=== PATIENT | female | born 1960 | race African-American/Black ===

== ENCOUNTER 2021-11-23 13:19 | Emergency (ER) | payer OTHER ==
[~2021-11-23] VITALS: Ht 167.6 cm; Wt 54.4 kg
[2021-11-23] MEDS ORDERED: SODIUM CHLORIDE 0.9% 1,000 ML IV ONE (18:45)
[2021-11-23] MEDS ORDERED: LORazepam 2MG/ML-1ML VIAL IV ONE (18:45)
[2021-11-23] MEDS ORDERED: OLANZapine 5 MG TAB PO ONE (19:00)
[2021-11-23 20:13] LABS: Basophils # (auto) 0.1 10 ^3/uL (0-0.2); Basophils % (auto) 1.1 % (0.0-2.0); Eosinophils # (auto) 0.3 10 ^3/uL (0-0.8); Eosinophils % (auto) 4.1 % (0.0-7.0); Hematocrit 40.3 % (36.0-46.0); Hemoglobin 13.6 g/dL (12.2-16.2); Lymphocytes # (auto) 3.9 10 ^3/uL (0.4-5.4); Mean Corpuscular Hemoglobin 32.2 pg (28.0-32.0); Mean Corpuscular Hgb Conc. 33.7 g/dL (32.0-36.0); Mean Corpuscular Volume 95.3 fL (80.0-100.0); Monocytes # (auto) 0.7 10 ^3/uL (0-1.3); Monocytes % (auto) 8.6 % (0.0-12.0); Neutrophils # (auto) 2.7 10 ^3/uL (1.6-8.6); Neutrophils % (auto) 35.2 % (37.0-80.0); Nucleated Red Blood Cells % 0.1 %; Red Blood Cells 4.22 10^6/uL (4.0-5.20); Red Cell Distribution Width 14.5 % (11.8-14.3); White Blood Cell 7.7 10^3/uL (4.4-10.8)
[2021-11-23 20:38] LABS: Albumin 3.8 g/dL (3.4-5.0); BUN/Creatinine Ratio 9.2; Calcium 8.8 mg/dL (8.5-10.1); Magnesium 2.7 mg/dL (1.6-2.6); Potassium 3.7 mmol/L (3.5-5.1)
[2021-11-23 20:40] LABS: Bilirubin, Total 0.3 mg/dL (0.2-1.0); Total Protein 7.4 g/dL (6.4-8.2)
[2021-11-23 20:51] LABS: Urine Bacteria NONE SEEN /hpf (None Seen); Urine Blood Negative /uL (Negative); Urine Hyaline Cast FEW /lpf (0 - 2); Urine Mucus FEW (None Seen); Urine Specific Gravity 1.018 (1.001-1.035); Urine WBC 2 /hpf (0 - 5)
[2021-11-23 21:42] LABS: Alcohol, Urine < 3.0 mg/dL (0-10); Amphetamine Screen, Urine NEGATIVE (NEGATIVE); Barbiturate Scree,Urine NEGATIVE (NEGATIVE); Benzodiazephine Screen, Urine NEGATIVE (NEGATIVE); Cannabinoid Screen, Urine POSITIVE (NEGATIVE); Cocaine Screen, Urine NEGATIVE (NEGATIVE); Opiate Scree,Urine NEGATIVE (NEGATIVE); Phencyclidine Screen, Urine NEGATIVE (NEGATIVE)
[2021-11-23] MEDS ORDERED: CIPROFLOXACIN HCL 500 MG TAB PO ONE (22:00)
[2021-11-25] MEDS ORDERED: VALPROIC ACID 250 MG/5 ML ORAL SOLN PO ONE (08:00)
[2021-11-25 08:41] VITALS: BP 160/109
== END 2021-11-25 09:22 | disposition short-term general hospital (02) ==
LOC: EDBD 13:19 → ER 13:19
DX: F20.9 Schizophrenia, unspecified (principal); F29 Unspecified psychosis not due to a substance or known physiological condition; N39.0 Urinary tract infection, site not specified; G40.909 Epilepsy, unspecified, not intractable, without status epilepticus; R07.89 Other chest pain
CPT/HCPCS: 36415; 70450; 71045; 80053; 80307; 81001; 83735; 84443; 85025; 93005; 96361; 96374; 99285; J2060

== ENCOUNTER 2022-01-19 13:43 | Emergency (ER) | payer OTHER ==
[2022-01-19] MEDS ORDERED: MORPHINE SULFATE INJ 2 MG/ml SYRG IV ONE (14:15)
[2022-01-19] MEDS ORDERED: ONDANSETRON HCL 4 MG/2 ML VIAL IV ONE (14:15)
[2022-01-19 14:38] LABS: Basophils # (auto) 0.1 10 ^3/uL (0-0.2); Basophils % (auto) 0.5 % (0.0-2.0); Eosinophils # (auto) 0 10 ^3/uL (0-0.8); Eosinophils % (auto) 0.3 % (0.0-7.0); Hematocrit 38.4 % (36.0-46.0); Hemoglobin 12.5 g/dL (12.2-16.2); Lymphocytes # (auto) 0.5 10 ^3/uL (0.4-5.4); Lymphocytes % (auto) 4.9 % (10.0-50.0); Mean Corpuscular Hemoglobin 30.2 pg (28.0-32.0); Mean Corpuscular Hgb Conc. 32.5 g/dL (32.0-36.0); Mean Corpuscular Volume 92.9 fL (80.0-100.0); Monocytes # (auto) 0.6 10 ^3/uL (0-1.3); Monocytes % (auto) 5.7 % (0.0-12.0); Neutrophils # (auto) 9.5 10 ^3/uL (1.6-8.6); Neutrophils % (auto) 88.6 % (37.0-80.0); Red Blood Cells 4.13 10^6/uL (4.0-5.20); Red Cell Distribution Width 14.2 % (11.8-14.3); White Blood Cell 10.8 10^3/uL (4.4-10.8)
[2022-01-19 14:57] LABS: Albumin 3.8 g/dL (3.4-5.0); BUN/Creatinine Ratio 11.7; Calcium 8.7 mg/dL (8.5-10.1); Potassium 3.7 mmol/L (3.5-5.1)
[2022-01-19] MEDS ORDERED: LORazepam 2MG/ML-1ML VIAL IV ONE (15:00)
[2022-01-19 15:01] LABS: Bilirubin, Total 0.4 mg/dL (0.2-1.0); Total Protein 7.4 g/dL (6.4-8.2)
[2022-01-19] MEDS ORDERED: PHENYTOIN IV DILANTIN 500 MG in SODIUM CHL 0.9% 100 ML IV ONE (17:30)
[2022-01-19 20:36] VITALS: BP 121/72
== END 2022-01-19 20:51 | disposition short-term general hospital (02) ==
LOC: EDUNIT# 13:43 → EDBD 13:43 → ER 13:43
DX: G40.909 Epilepsy, unspecified, not intractable, without status epilepticus (principal); F29 Unspecified psychosis not due to a substance or known physiological condition; R41.82 Altered mental status, unspecified; F12.10 Cannabis abuse, uncomplicated; Z20.822 Contact with and (suspected) exposure to COVID-19
CPT/HCPCS: 36415; 70450; 80053; 80185; 80320; 85025; 87426; 93005; 96365; 96367; 96375; 99285; J1165; J1953; J2060; J2270; J2405; J7060

== ENCOUNTER → 2023-08-27 | Outpatient (CLI) | payer MEDICAID ==
[2023-08-27 13:04] LABS: Triglycerides 49 mg/dL (< 150)
[2023-08-27 13:05] LABS: LDL Cholesterol 109 mg/dL (< 100)
[2023-08-27 13:06] LABS: Cholesterol 210 mg/dL (< 200); HDL Cholesterol 84 mg/dL (40-59)
== END | disposition home or self-care (01) ==
LOC: LAB 12:11
PROVIDERS: ATTEND Student in an Organized Health Care Education/Training Program
DX: Z12.11 Encounter for screening for malignant neoplasm of colon (principal); R73.03 Prediabetes; E78.5 Hyperlipidemia, unspecified
CPT/HCPCS: 36415; 80061

== ENCOUNTER 2023-10-08 11:48 | Inpatient (IN) | payer MEDICAID ==
[~2023-10-08] VITALS: Ht 167.6 cm; Wt 91.1 kg
[2023-10-08 13:04] LABS: Basophils # (auto) 0.1 10 ^3/uL (0-0.2); Basophils % (auto) 0.9 % (0.0-2.0); Eosinophils # (auto) 0 10 ^3/uL (0-0.8); Eosinophils % (auto) 0.6 % (0.0-7.0); Hematocrit 42.9 % (36.0-46.0); Lymphocytes # (auto) 2.5 10 ^3/uL (0.4-5.4); Lymphocytes % (auto) 29.4 % (10.0-50.0); Mean Corpuscular Hemoglobin 30.1 pg (28.0-32.0); Mean Corpuscular Hgb Conc. 32.8 g/dL (32.0-36.0); Mean Corpuscular Volume 91.9 fL (80.0-100.0); Monocytes # (auto) 0.8 10 ^3/uL (0-1.3); Monocytes % (auto) 9.3 % (0.0-12.0); Neutrophils # (auto) 5.1 10 ^3/uL (1.6-8.6); Neutrophils % (auto) 59.8 % (37.0-80.0); Red Blood Cells 4.67 10^6/uL (4.0-5.20); Red Cell Distribution Width 16.8 % (11.8-14.3); White Blood Cell 8.5 10^3/uL (4.4-10.8)
[2023-10-08 13:11] LABS: Alanine Aminotransferase 17 U/L (7-40); Alkaline Phosphatase 174 U/L (46-116); Anion Gap 9 (5-15); Aspartate Aminotransferase 21 U/L (13-40); BUN/Creatinine Ratio 11.5 (10.0-20.0); Blood Urea Nitrogen 12 mg/dL (9-23); Calcium 9.7 mg/dL (8.5-10.1); Carbon Dioxide 26 mmol/L (20-30); Chloride 106 mmol/L (98-107); Glucose 173 mg/dL (74-106); Potassium 3.8 mmol/L (3.5-5.1); Sodium 141 mmol/L (136-145)
[2023-10-08 13:12] LABS: Albumin 4.8 g/dL (3.2-4.8); Bilirubin, Total 0.4 mg/dL (0.2-1.0); Total Protein 7.3 g/dL (5.7-8.2)
[2023-10-08 13:24] LABS: Lactic Acid w/Reflex 2.5 mmol/L (0.4-2.0)
[2023-10-08] MEDS ORDERED: NITROGLYCERIN 0.4 MG SL TAB SL PRN (14:45)
[2023-10-08] MEDS ORDERED: DOCUSATE SOD 100 MG CAP PO PRN (14:45)
[2023-10-08] MEDS ORDERED: ONDANSETRON HCL 4 MG/2 ML VIAL IV PRN (14:45)
[2023-10-08] MEDS ORDERED: MORPHINE SULFATE INJ 2 MG/ml SYRG IV PRN (14:45)
[2023-10-08] MEDS ORDERED: HYDROcodone-ACET 5/325MG TAB PO PRN (14:45)
[2023-10-08] MEDS ORDERED: DONE1TAB88 PO (15:25)
[2023-10-08] MEDS ORDERED: SERT-160 PO (15:25)
[2023-10-08] MEDS ORDERED: VALP250C3 PO (15:25)
[2023-10-08] MEDS ORDERED: IPRATROPIUM BROM 0.5 MG/2.5ML INH SOL NEB SCH (18:00)
[2023-10-08] MEDS ORDERED: ALBUTEROL SULF 2.5 MG/0.5ML(0.5%) NEB SOLN NEB SCH (18:00)
[2023-10-08] MEDS: IOHEXOL 350 MG/ML 100ML IJ ONE ×3 (18:34→23:19)
[2023-10-08] MEDS: ENOXAPARIN SOD 40 MG/0.4 ML SYRINGE SC ONE (22:09)
[2023-10-08] MEDS: MORPHINE SULFATE INJ 2 MG/ml SYRG IV PRN (22:10)
[2023-10-08] MEDS: SODIUM CHLORIDE 0.9% 1,000 ML IV ONE (22:10)
[2023-10-08 23:50] VITALS: BP 130/82; PULSE 61; RESP 18; RESP 20; TEMP 97.6; O2SAT 95
[2023-10-09] MEDS: DONEPEZIL HYDROCHLORIDE 5 MG TAB PO SCH (00:38)
[2023-10-09] MEDS: SODIUM CHLORIDE 0.9% 1,000 ML IV ONE (00:38)
[2023-10-09] MEDS: ACETAMINOPHEN 325 MG TAB PO PRN (01:38)
[2023-10-09 05:00] VITALS: BP 124/73; PULSE 61; RESP 20; TEMP 98.3; O2SAT 98
[2023-10-09 05:55] LABS: Basophils # (auto) 0.1 10 ^3/uL (0-0.2); Basophils % (auto) 1.4 % (0.0-2.0); Eosinophils # (auto) 0.4 10 ^3/uL (0-0.8); Eosinophils % (auto) 3.9 % (0.0-7.0); Hematocrit 40.1 % (36.0-46.0); Lymphocytes # (auto) 3.5 10 ^3/uL (0.4-5.4); Lymphocytes % (auto) 36.2 % (10.0-50.0); Mean Corpuscular Hgb Conc. 32.4 g/dL (32.0-36.0); Mean Corpuscular Volume 92.4 fL (80.0-100.0); Monocytes # (auto) 1.6 10 ^3/uL (0-1.3); Monocytes % (auto) 16.8 % (0.0-12.0); Neutrophils % (auto) 41.7 % (37.0-80.0); Nucleated Red Blood Cells % 0.3 %; Red Blood Cells 4.34 10^6/uL (4.0-5.20); Red Cell Distribution Width 16.6 % (11.8-14.3); White Blood Cell 9.6 10^3/uL (4.4-10.8)
[2023-10-09 06:16] LABS: Alanine Aminotransferase 11 U/L (7-40); Albumin 3.9 g/dL (3.2-4.8); Alkaline Phosphatase 133 U/L (46-116); Anion Gap 9 (5-15); Aspartate Aminotransferase 12 U/L (13-40); BUN/Creatinine Ratio 11.1 (10.0-20.0); Bilirubin, Total 0.4 mg/dL (0.2-1.0); Blood Urea Nitrogen 7 mg/dL (9-23); Calcium 8.9 mg/dL (8.7-10.4); Carbon Dioxide 21 mmol/L (20-30); Chloride 109 mmol/L (98-107); Glucose 93 mg/dL (74-106); Potassium 3.4 mmol/L (3.5-5.1); Sodium 139 mmol/L (136-145); Total Protein 6.5 g/dL (5.7-8.2)
[2023-10-09 07:21] LABS: Urine Bacteria NONE SEEN /hpf (None Seen); Urine Blood Negative /uL (Negative); Urine Clarity Clear (Clear); Urine Color Colorless (Yellow); Urine Protein, UAD Negative (Negative); Urine Specific Gravity 1.038 (1.001-1.035); Urine Urobilinogen Normal (Negative); Urine WBC 1 /hpf (0 - 5); Urine pH 5.5 (5.0-8.0)
[2023-10-09 07:27] LABS: Amphetamine Screen, Urine Neg (NEGATIVE); Barbiturate Scree,Urine Neg (NEGATIVE); Benzodiazephine Screen, Urine Neg (NEGATIVE); Cocaine Screen, Urine Neg (NEGATIVE); Opiate Scree,Urine Neg (NEGATIVE)
[2023-10-09 07:28] LABS: Cannabinoid Screen, Urine Pos (NEGATIVE); Phencyclidine Screen, Urine Neg (NEGATIVE)
[2023-10-09 08:00] VITALS: PULSE 60; PULSE 85; RESP 18; TEMP 36.8; O2SAT 94
[2023-10-09 09:00] VITALS: BP 111/65; PULSE 58; RESP 16; TEMP 98.3; O2SAT 94
[2023-10-09] MEDS: ENOXAPARIN SOD 40 MG/0.4 ML SYRINGE SC SCH (10:00)
[2023-10-09] MEDS: POTASSIUM CHL 20 Meq TABLET PO ONE (11:00)
[2023-10-09] MEDS: SERTRALINE HCL 50 MG TAB PO SCH (11:00)
[2023-10-09 13:00] VITALS: BP 133/83; PULSE 60; RESP 17; TEMP 97.8; O2SAT 95
[2023-10-09] MEDS ORDERED: LEVE100012 PO (13:39)
[2023-10-09] MEDS ORDERED: OLAN1TAB19 PO (13:41)
[2023-10-09] MEDS ORDERED: ASPI-717 PO (13:44)
[2023-10-09] MEDS ORDERED: PHEN1CAP60 PO (13:45)
[2023-10-09 17:00] VITALS: BP 137/78; PULSE 61; RESP 17; TEMP 97.8; O2SAT 96
[2023-10-09] MEDS: POTASSIUM CHLORIDE 20 MEQ, LIDOCAINE 1% (LOCAL ANESTH.) 2 ML in SODIUM CHL 0.9% 100 ML IV ONE (18:51)
[2023-10-09] MEDS: KETOROLAC TROMETH 30 MG/ML 1ML VIAL IV PRN (18:52)
[2023-10-09 20:00] VITALS: PULSE 61; PULSE 67; RESP 18; O2SAT 94
[2023-10-09] MEDS: levETIRAcetam 500 MG TAB PO SCH (21:14)
[2023-10-10] VITALS (7 sets, daily range): BP systolic 117–137; BP diastolic 73–95; PULSE 60–68; RESP 16–18; TEMP 36.8; O2SAT 94–99
[2023-10-10 06:31] LABS: Chloride 110 mmol/L (98-107); Sodium 141 mmol/L (136-145)
[2023-10-10 06:32] LABS: Anion Gap 8 (5-15); Carbon Dioxide 23 mmol/L (20-30)
[2023-10-10 06:33] LABS: Calcium 8.9 mg/dL (8.7-10.4)
[2023-10-10 06:37] LABS: BUN/Creatinine Ratio 13.1 (10.0-20.0); Blood Urea Nitrogen 8 mg/dL (9-23); Glucose 104 mg/dL (74-106)
[2023-10-10] MEDS: PHENYTOIN SODIUM 100 MG CAP PO SCH (10:37)
[2023-10-10] MEDS: OLANZapine 5 MG TAB PO SCH (10:39)
== END 2023-10-10 20:03 | disposition home or self-care (01) | DRG 203 ==
LOC: ER 11:48 → EDBD 11:48 → TELE 14:56 → TELE-CENTR 22:59
PROVIDERS: ADMIT Nurse Practitioner Family; ATTEND Internal Medicine
DX: M94.0 Chondrocostal junction syndrome [Tietze] (principal); F03.90 Unspecified dementia, unspecified severity, without behavioral disturbance, psychotic disturbance, mood disturbance, and anxiety; E11.9 Type 2 diabetes mellitus without complications; Z68.32 Body mass index [BMI] 32.0-32.9, adult; F20.9 Schizophrenia, unspecified; G40.909 Epilepsy, unspecified, not intractable, without status epilepticus; E66.9 Obesity, unspecified; Z83.3 Family history of diabetes mellitus; Z95.0 Presence of cardiac pacemaker; Z87.891 Personal history of nicotine dependence
CPT/HCPCS: 36415; 71045; 71275; 80048; 80053; 80164; 80307; 81001; 82607; 83036; 83605; 84443; 84484; 85025; 85379; 87070; 87205; 93005; 93306; G0378; J1885; J2001

== ENCOUNTER 2024-01-04 12:39 | Inpatient (IN) | payer MEDICAID ==
[~2024-01-04] VITALS: Ht 166.4 cm; Wt 73.7 kg
[~2024-01-04 12:39] MED LIST: ASPI-717 PO; DONE1TAB88 PO; LEVE100012 PO; OLAN1TAB19 PO; PHEN1CAP60 PO; SERT-160 PO; VALP250C3 PO
[2024-01-04] MEDS ORDERED: DEXTROSE 10% 250 ML IV ONE (14:30)
[2024-01-04 15:00] VITALS: PULSE 62; RESP 16; O2SAT 95
[2024-01-04] MEDS: DEXTROSE (50%) 50ML SYRG IV ONE (15:30)
[2024-01-04 15:40] LABS: Basophils # (auto) 0.1 10 ^3/uL (0-0.2); Basophils % (auto) 0.7 % (0.0-2.0); Eosinophils # (auto) 0.2 10 ^3/uL (0-0.8); Eosinophils % (auto) 2.2 % (0.0-7.0); Hematocrit 41.2 % (36.0-46.0); Hemoglobin 13.6 g/dL (12.2-16.2); Lymphocytes % (auto) 42.9 % (10.0-50.0); Mean Corpuscular Hemoglobin 32.1 pg (28.0-32.0); Mean Corpuscular Volume 97.4 fL (80.0-100.0); Monocytes # (auto) 1.1 10 ^3/uL (0-1.3); Monocytes % (auto) 11.9 % (0.0-12.0); Neutrophils % (auto) 42.3 % (37.0-80.0); Nucleated Red Blood Cells % 0.1 %; Red Blood Cells 4.22 10^6/uL (4.0-5.20); Red Cell Distribution Width 14.5 % (11.8-14.3); White Blood Cell 9.4 10^3/uL (4.4-10.8)
[2024-01-04 15:55] LABS: Alanine Aminotransferase 36 U/L (7-40); Albumin 4.7 g/dL (3.2-4.8); Alkaline Phosphatase 135 U/L (46-116); Anion Gap 6 (5-15); Aspartate Aminotransferase 35 U/L (13-40); BUN/Creatinine Ratio 17.3 (10.0-20.0); Blood Urea Nitrogen 13 mg/dL (9-23); Calcium 9.7 mg/dL (8.5-10.1); Carbon Dioxide 28 mmol/L (20-30); Chloride 108 mmol/L (98-107); Glucose 104 mg/dL (74-106); Potassium 4.3 mmol/L (3.5-5.1); Sodium 142 mmol/L (136-145)
[2024-01-04 15:56] LABS: Bilirubin, Total 0.2 mg/dL (0.2-1.0); Total Protein 7.1 g/dL (5.7-8.2)
[2024-01-04 16:14] LABS: INR 1.04 (0.9-1.15); Partial Thromboplastin Time 25.5 SEC (24.5-34.5)
[2024-01-04] MEDS ORDERED: NITROGLYCERIN 0.4 MG SL TAB SL PRN (17:00)
[2024-01-04] MEDS ORDERED: ONDANSETRON HCL 4 MG/2 ML VIAL IV PRN (17:00)
[2024-01-04] MEDS ORDERED: MORPHINE SULFATE 4 MG/ML SYR/VIAL IV PRN (17:00)
[2024-01-04] MEDS ORDERED: ACETAMINOPHEN 325 MG TAB PO PRN (17:00)
[2024-01-04 18:05] LABS: INR 1.03 (0.9-1.15); Prothrombin Time 10.9 sec (9.3-11.8)
[2024-01-04] MEDS ORDERED: ATOR20TA50 PO (18:38)
[2024-01-04] MEDS ORDERED: CELE100C82 PO (18:38)
[2024-01-04 19:18] LABS: Valproic Acid (Depakene) 73.2 ug/mL (50-100)
[2024-01-04 19:26] LABS: Phenytoin (Dilantin) 35.7 ug/mL (10-20)
[2024-01-04 19:30] VITALS: PULSE 61; RESP 10; O2SAT 93
[2024-01-04] MEDS: DEXTROSE 50% SYRINGE 50 ML IV ONE (20:03)
[2024-01-04] MEDS: DEXTROSE 10% 1,000 ML IV ONE (20:17)
[2024-01-04] MEDS: VALPROIC ACID 250 MG/5 ML ORAL SOLN PO SCH (22:10)
[2024-01-04] MEDS: levETIRAcetam 500 MG TAB PO SCH (22:11)
[2024-01-04] MEDS: ATORVASTATIN 20 MG TAB PO SCH (22:11)
[2024-01-04] MEDS: PHENYTOIN SODIUM 100 MG CAP PO SCH (22:11)
[2024-01-04] MEDS: METOPROLOL TARTRATE 25 MG TAB PO SCH (22:12)
[2024-01-04] MEDS: OLANZapine 5 MG TAB PO SCH (22:12)
[2024-01-04 23:46] VITALS: BP 121/80; PULSE 62; RESP 15; TEMP 97.5; O2SAT 97
[2024-01-05] VITALS (7 sets, daily range): BP systolic 116–141; BP diastolic 71–89; PULSE 56–91; RESP 16–18; TEMP 97.6–98.4; O2SAT 92–96
[2024-01-05 07:28] LABS: Alanine Aminotransferase 31 U/L (7-40); Albumin 3.7 g/dL (3.2-4.8); Alkaline Phosphatase 105 U/L (46-116); Anion Gap 2 (5-15); Aspartate Aminotransferase 30 U/L (13-40); Bilirubin, Total 0.3 mg/dL (0.2-1.0); Blood Urea Nitrogen 6 mg/dL (9-23); Calcium 8.6 mg/dL (8.5-10.1); Carbon Dioxide 26 mmol/L (20-30); Chloride 112 mmol/L (98-107); Cholesterol 124 mg/dL (< 200); Glucose 76 mg/dL (74-106); HDL Cholesterol 66 mg/dL (40-59); LDL Cholesterol 39 mg/dL (< 100); Potassium 4.3 mmol/L (3.5-5.1); Sodium 140 mmol/L (136-145); Triglycerides 45 mg/dL (< 150)
[2024-01-05 08:26] LABS: Hematocrit 38.8 % (36.0-46.0); Hemoglobin 12.6 g/dL (12.2-16.2); Mean Corpuscular Hgb Conc. 32.6 g/dL (32.0-36.0); Mean Corpuscular Volume 101.1 fL (80.0-100.0); Red Blood Cells 3.83 10^6/uL (4.0-5.20); Red Cell Distribution Width 14.7 % (11.8-14.3); White Blood Cell 7.5 10^3/uL (4.4-10.8)
[2024-01-05 08:27] LABS: Band Neutrophils % (manual) 0; Basophils % (manual) 0 (0.0-2.0); Blast Cells 0; Metamyelocytes % 0; Monocytes % (manual) 0 (0-12); Myelocytes % 0; Promyelocytes % 0; Reactive Lymphocytes 0
[2024-01-05] MEDS: ASPirin 81 mg TAB PO SCH (09:56)
[2024-01-05] MEDS: DONEPEZIL HYDROCHLORIDE 5 MG TAB PO SCH (09:56)
[2024-01-05] MEDS: DOCUSATE SOD 100 MG CAP PO SCH (09:56)
[2024-01-05] MEDS: SERTRALINE HCL 50 MG TAB PO SCH (09:56)
[2024-01-05 12:26] LABS: Eosinophils % (manual) 4 (0-7); Lymphocytes % (manual) 47 (10.0-50.0)
[2024-01-05 12:27] LABS: Platelet Estimate Adequate
[2024-01-06] VITALS (7 sets, daily range): BP systolic 103–141; BP diastolic 68–90; PULSE 60–76; RESP 15–22; TEMP 97.8–98.5; O2SAT 90–97
[2024-01-06] MEDS ORDERED: DEXTROSE (50%) 50ML SYRG IV PRN (17:30)
[2024-01-06] MEDS: ACCU-CHEK COMFORT CURVE STRIP VI SCH (22:14)
[2024-01-06] MEDS: InsuLIN REG 1unit/0.01ml Soln (100units/ml) SC SCH (22:18)
[2024-01-07] VITALS (8 sets, daily range): BP systolic 103–130; BP diastolic 67–88; PULSE 60–68; RESP 15–22; TEMP 97.9–98.3; O2SAT 95–100
[2024-01-08] VITALS (7 sets, daily range): BP systolic 101–126; BP diastolic 63–85; PULSE 60–65; RESP 16–22; TEMP 97.6–98.4; O2SAT 95–99
== END 2024-01-08 17:15 | disposition home health service (06) | DRG 420 ==
LOC: ER 12:39 → TELE 17:18 → TELE-WESTW 22:53
PROVIDERS: ADMIT Internal Medicine; ATTEND Internal Medicine
PROC: 4B02XSZ Measurement of Cardiac Pacemaker, External Approach (ICD-10-PCS; principal; 2024-01-08)
DX: E11.649 Type 2 diabetes mellitus with hypoglycemia without coma (principal); F03.90 Unspecified dementia, unspecified severity, without behavioral disturbance, psychotic disturbance, mood disturbance, and anxiety; R62.7 Adult failure to thrive; R56.9 Unspecified convulsions; E11.42 Type 2 diabetes mellitus with diabetic polyneuropathy; R07.89 Other chest pain; E11.65 Type 2 diabetes mellitus with hyperglycemia; E78.5 Hyperlipidemia, unspecified; I10 Essential (primary) hypertension; R29.6 Repeated falls; F20.9 Schizophrenia, unspecified; F12.90 Cannabis use, unspecified, uncomplicated; Z95.0 Presence of cardiac pacemaker; Z79.4 Long term (current) use of insulin; Z83.3 Family history of diabetes mellitus
CPT/HCPCS: 36415; 70450; 71045; 80053; 80061; 80164; 80185; 80320; 82962; 83036; 83735; 83880; 84443; 84484; 85007; 85025; 85027; 85610; 85730; 87081; 93886; 96361; 96374; 97110; 97116; 97163; 97530; G0378; J1815

== ENCOUNTER 2024-03-19 13:14 | Inpatient (IN) | payer MEDICAID ==
[~2024-03-19] VITALS: Ht 162.6 cm; Wt 66.1 kg
[~2024-03-19 13:14] MED LIST changes: +ATOR20TA50 PO; +CELE100C82 PO; +PHEN1CAP38 PO; -PHEN1CAP60 PO
[2024-03-19 18:00] LABS: Basophils # (auto) 0.1 10 ^3/uL (0-0.2); Basophils % (auto) 0.9 % (0.0-2.0); Eosinophils # (auto) 0.3 10 ^3/uL (0-0.8); Eosinophils % (auto) 2.7 % (0.0-7.0); Hematocrit 38.6 % (36.0-46.0); Hemoglobin 12.7 g/dL (12.2-16.2); Lymphocytes # (auto) 2.7 10 ^3/uL (0.4-5.4); Lymphocytes % (auto) 26.5 % (10.0-50.0); Mean Corpuscular Hemoglobin 31.4 pg (28.0-32.0); Mean Corpuscular Volume 95.2 fL (80.0-100.0); Monocytes # (auto) 1.3 10 ^3/uL (0-1.3); Monocytes % (auto) 13.2 % (0.0-12.0); Neutrophils # (auto) 5.7 10 ^3/uL (1.6-8.6); Neutrophils % (auto) 56.7 % (37.0-80.0); Platelet Count (auto) 369 10^3/uL (140-450); Red Blood Cells 4.05 10^6/uL (4.0-5.20)
[2024-03-19 18:10] LABS: Chloride 109 mmol/L (98-107); Potassium 3.8 mmol/L (3.5-5.1); Sodium 140 mmol/L (136-145)
[2024-03-19 18:11] LABS: Anion Gap 9 (5-15); Carbon Dioxide 22 mmol/L (20-30)
[2024-03-19 18:12] LABS: Calcium 9.3 mg/dL (8.7-10.4)
[2024-03-19 18:17] LABS: BUN/Creatinine Ratio 9.1 (10.0-20.0); Blood Urea Nitrogen 6 mg/dL (9-23); Glucose 138 mg/dL (74-106)
[2024-03-20] MEDS ORDERED: ONDANSETRON HCL 4 MG/2 ML VIAL IV PRN (00:15)
[2024-03-20] MEDS ORDERED: DEXTROSE (50%) 50ML SYRG IV PRN (00:15)
[2024-03-20 03:47] VITALS: PULSE 70; RESP 16; O2SAT 96
[2024-03-20] MEDS: levETIRAcetam 1000 mg/100ml 100 ML IV ONE (04:11)
[2024-03-20] MEDS: InsuLIN REG 1unit/0.01ml Soln (100units/ml) SC SCH (06:24)
[2024-03-20] MEDS: ACCU-CHEK COMFORT CURVE STRIP VI SCH (06:24)
[2024-03-20 09:14] LABS: Basophils # (auto) 0.1 10 ^3/uL (0-0.2); Eosinophils # (auto) 0.4 10 ^3/uL (0-0.8); Eosinophils % (auto) 5.2 % (0.0-7.0); Hematocrit 37.6 % (36.0-46.0); Hemoglobin 12.3 g/dL (12.2-16.2); Lymphocytes # (auto) 2.9 10 ^3/uL (0.4-5.4); Lymphocytes % (auto) 33.5 % (10.0-50.0); Mean Corpuscular Hemoglobin 31.6 pg (28.0-32.0); Mean Corpuscular Hgb Conc. 32.8 g/dL (32.0-36.0); Mean Corpuscular Volume 96.4 fL (80.0-100.0); Monocytes # (auto) 1.1 10 ^3/uL (0-1.3); Monocytes % (auto) 12.5 % (0.0-12.0); Neutrophils # (auto) 4.1 10 ^3/uL (1.6-8.6); Neutrophils % (auto) 47.8 % (37.0-80.0); Nucleated Red Blood Cells % 0.1 %; Platelet Count (auto) 339 10^3/uL (140-450); Red Cell Distribution Width 14.7 % (11.8-14.3); White Blood Cell 8.5 10^3/uL (4.4-10.8)
[2024-03-20 09:39] LABS: Alanine Aminotransferase 16 U/L (7-40); Albumin 4.1 g/dL (3.2-4.8); Alkaline Phosphatase 164 U/L (46-116); Anion Gap 6 (5-15); Aspartate Aminotransferase 18 U/L (13-40); BUN/Creatinine Ratio 12.5 (10.0-20.0); Bilirubin, Total 0.5 mg/dL (0.2-1.0); Blood Urea Nitrogen 8 mg/dL (9-23); Calcium 9.1 mg/dL (8.7-10.4); Carbon Dioxide 25 mmol/L (20-30); Chloride 109 mmol/L (98-107); Glucose 91 mg/dL (74-106); Magnesium 2.1 mg/dL (1.6-2.6); Potassium 3.8 mmol/L (3.5-5.1); Sodium 140 mmol/L (136-145)
[2024-03-20 09:40] LABS: Total Protein 6.5 g/dL (5.7-8.2)
[2024-03-20 10:00] VITALS: PULSE 62; RESP 22; O2SAT 100
[2024-03-20 10:20] LABS: Amphetamine Screen, Urine Neg (NEGATIVE); Barbiturate Scree,Urine Neg (NEGATIVE); Benzodiazephine Screen, Urine Neg (NEGATIVE); Cocaine Screen, Urine Neg (NEGATIVE)
[2024-03-20 10:21] LABS: Cannabinoid Screen, Urine Pos (NEGATIVE); Opiate Scree,Urine Neg (NEGATIVE); Phencyclidine Screen, Urine Neg (NEGATIVE)
[2024-03-20 10:30] LABS: Urine Bacteria FEW /hpf (None Seen); Urine Blood Negative /uL (Negative); Urine Clarity Clear (Clear); Urine Color Light-Yellow (Yellow); Urine Protein, UAD Negative (Negative); Urine Specific Gravity 1.009 (1.001-1.035); Urine Urobilinogen Normal (Negative); Urine WBC 1 /hpf (0 - 5)
[2024-03-20] MEDS: SERTRALINE HCL 50 MG TAB PO SCH (10:31)
[2024-03-20] MEDS: PHENYTOIN SODIUM 100 MG CAP PO SCH (10:31)
[2024-03-20] MEDS: levETIRAcetam 500 MG TAB PO SCH (10:31)
[2024-03-20] MEDS: ENOXAPARIN SOD 40 MG/0.4 ML SYRINGE SC SCH (10:32)
[2024-03-20 10:49] LABS: Folate (Folic Acid) 8.11 ng/mL (>5.38)
[2024-03-20 16:40] VITALS: BP 143/86; PULSE 68; RESP 17; TEMP 98.1; O2SAT 98
[2024-03-20 20:00] VITALS: RESP 17
[2024-03-20 21:00] VITALS: BP 129/75; PULSE 60; RESP 17; TEMP 98.6; O2SAT 92
[2024-03-20] MEDS: DONEPEZIL HYDROCHLORIDE 5 MG TAB PO SCH (21:35)
[2024-03-20] MEDS: ATORVASTATIN 20 MG TAB PO SCH (21:36)
[2024-03-20 21:38] LABS: Valproic Acid (Depakene) 42.9 ug/mL (50-100)
[2024-03-20 21:57] LABS: Phenytoin (Dilantin) 35.9 ug/mL (10-20)
[2024-03-21 01:00] VITALS: BP 105/65; PULSE 60; RESP 20; TEMP 98.7; O2SAT 93
[2024-03-21 05:00] VITALS: BP 112/65; PULSE 61; RESP 21; TEMP 98; O2SAT 92
[2024-03-21 07:10] LABS: Anion Gap 7 (5-15); Carbon Dioxide 24 mmol/L (20-30); Chloride 108 mmol/L (98-107); Sodium 139 mmol/L (136-145)
[2024-03-21 07:11] LABS: Calcium 8.6 mg/dL (8.7-10.4)
[2024-03-21 07:16] LABS: BUN/Creatinine Ratio 15.3 (10.0-20.0); Blood Urea Nitrogen 9 mg/dL (9-23); Glucose 112 mg/dL (74-106)
[2024-03-21 07:18] LABS: Basophils # (auto) 0.1 10 ^3/uL (0-0.2); Basophils % (auto) 1.2 % (0.0-2.0); Eosinophils # (auto) 0.5 10 ^3/uL (0-0.8); Eosinophils % (auto) 6.9 % (0.0-7.0); Hematocrit 37.1 % (36.0-46.0); Hemoglobin 12.4 g/dL (12.2-16.2); Lymphocytes # (auto) 2.2 10 ^3/uL (0.4-5.4); Lymphocytes % (auto) 30.8 % (10.0-50.0); Mean Corpuscular Hemoglobin 32.3 pg (28.0-32.0); Mean Corpuscular Hgb Conc. 33.5 g/dL (32.0-36.0); Mean Corpuscular Volume 96.4 fL (80.0-100.0); Monocytes # (auto) 0.9 10 ^3/uL (0-1.3); Monocytes % (auto) 12.9 % (0.0-12.0); Neutrophils # (auto) 3.4 10 ^3/uL (1.6-8.6); Neutrophils % (auto) 48.2 % (37.0-80.0); Nucleated Red Blood Cells % 0.1 %; Platelet Count (auto) 339 10^3/uL (140-450); Red Blood Cells 3.85 10^6/uL (4.0-5.20); Red Cell Distribution Width 14.6 % (11.8-14.3)
[2024-03-21 08:00] VITALS: PULSE 61; RESP 20; O2SAT 97
[2024-03-21 09:10] VITALS: BP 123/83; PULSE 68; RESP 18; TEMP 98.6; O2SAT 93
[2024-03-21 13:00] VITALS: BP 123/87; PULSE 61; RESP 20; TEMP 98.3; O2SAT 97
[2024-03-21] MEDS ORDERED: CLON-853 PO (13:55)
[2024-03-21] MEDS ORDERED: DIVA1TAB59 PO (13:55)
[2024-03-21] MEDS ORDERED: SERT-289 PO (13:55)
[2024-03-21 15:20] VITALS: BP 121/85; PULSE 60; RESP 18; TEMP 98.3; O2SAT 98
[2024-03-21] MEDS: ACETAMINOPHEN 325 MG TAB PO PRN (15:47)
== END 2024-03-21 16:00 | disposition home or self-care (01) | DRG 53 ==
LOC: EDBD 13:14 → EDUNIT# 13:14 → ER 13:25 → OVERFLOW 03-20 00:10 → EAST 03-20 16:22
PROVIDERS: ADMIT Internal Medicine Pulmonary Disease; ATTEND Internal Medicine Pulmonary Disease
DX: G40.909 Epilepsy, unspecified, not intractable, without status epilepticus (principal); G93.41 Metabolic encephalopathy; G90.9 Disorder of the autonomic nervous system, unspecified; F02.80 Dementia in other diseases classified elsewhere, unspecified severity, without behavioral disturbance, psychotic disturbance, mood disturbance, and anxiety; I10 Essential (primary) hypertension; G30.9 Alzheimer's disease, unspecified; F12.10 Cannabis abuse, uncomplicated; I25.10 Atherosclerotic heart disease of native coronary artery without angina pectoris; E78.5 Hyperlipidemia, unspecified; E11.9 Type 2 diabetes mellitus without complications; Z95.0 Presence of cardiac pacemaker; Z82.49 Family history of ischemic heart disease and other diseases of the circulatory system; Z83.3 Family history of diabetes mellitus; Z82.0 Family history of epilepsy and other diseases of the nervous system; Z79.899 Other long term (current) drug therapy
CPT/HCPCS: 36415; 70450; 80048; 80053; 80164; 80185; 80307; 81001; 82542; 82607; 82746; 82962; 83735; 84443; 84484; 85025; 87081; 93005; 95819; 97110; 97116; 97163; G0378; J1815

== ENCOUNTER → 2024-05-09 | Outpatient (CLI) | payer MEDICAID ==
[~2024-05-09] MED LIST changes: +CLON-853 PO; +DIVA1TAB59 PO; -PHEN1CAP38 PO; -SERT-160 PO; +SERT-289 PO; -VALP250C3 PO
[2024-05-09 11:13] LABS: Urine Bacteria None Seen /hpf (None Seen)
[2024-05-09 11:54] LABS: Basophils # (auto) 0.1 10 ^3/uL (0-0.2); Eosinophils # (auto) 0.2 10 ^3/uL (0-0.8); Eosinophils % (auto) 3.3 % (0.0-7.0); Hematocrit 38.6 % (36.0-46.0); Hemoglobin 12.6 g/dL (12.2-16.2); Lymphocytes # (auto) 3.3 10 ^3/uL (0.4-5.4); Lymphocytes % (auto) 44.3 % (10.0-50.0); Mean Corpuscular Hemoglobin 31.6 pg (28.0-32.0); Mean Corpuscular Hgb Conc. 32.7 g/dL (32.0-36.0); Mean Corpuscular Volume 96.7 fL (80.0-100.0); Monocytes # (auto) 0.7 10 ^3/uL (0-1.3); Monocytes % (auto) 9.4 % (0.0-12.0); Neutrophils # (auto) 3.1 10 ^3/uL (1.6-8.6); Platelet Count (auto) 282 10^3/uL (140-450); Red Blood Cells 3.99 10^6/uL (4.0-5.20); Red Cell Distribution Width 15.1 % (11.8-14.3); White Blood Cell 7.4 10^3/uL (4.4-10.8)
[2024-05-09 12:01] LABS: Alanine Aminotransferase 20 U/L (7-40); Albumin 4.6 g/dL (3.2-4.8); Alkaline Phosphatase 152 U/L (46-116); Anion Gap 6 (5-15); Aspartate Aminotransferase 18 U/L (13-40); Blood Urea Nitrogen 9 mg/dL (9-23); Calcium 9.6 mg/dL (8.7-10.4); Carbon Dioxide 26 mmol/L (20-31); Chloride 109 mmol/L (98-107); Glucose 76 mg/dL (74-106); LDL Cholesterol 54 mg/dL (< 100); Potassium 4.4 mmol/L (3.5-5.1); Sodium 141 mmol/L (136-145); Triglycerides 51 mg/dL (< 150)
[2024-05-09 12:02] LABS: Bilirubin, Direct < 0.1 mg/dL (<0.3); Bilirubin, Total 0.2 mg/dL (0.2-1.0); Cholesterol 196 mg/dL (< 200); HDL Cholesterol 118 mg/dL (40-59); Total Protein 7.4 g/dL (5.7-8.2)
[2024-05-09 12:42] LABS: Urine Blood Negative /uL (Negative); Urine Clarity Clear (Clear); Urine Color Colorless (Yellow); Urine Protein, UAD Negative (Negative); Urine Urobilinogen Normal (Negative); Urine WBC <1 /hpf (0 - 5); Urine pH 7.5 (5.0-9.0)
[2024-05-09 12:45] LABS: Valproic Acid (Depakene) 51.2 ug/mL (50-100)
[2024-05-10 07:07] LABS: RPR Non Reactive (Non Reactive)
== END | disposition home or self-care (01) ==
LOC: LAB 10:09
DX: Z12.11 Encounter for screening for malignant neoplasm of colon (principal); Z11.3 Encounter for screening for infections with a predominantly sexual mode of transmission; E11.9 Type 2 diabetes mellitus without complications; I10 Essential (primary) hypertension; E78.5 Hyperlipidemia, unspecified; G40.909 Epilepsy, unspecified, not intractable, without status epilepticus
CPT/HCPCS: 36415; 80053; 80061; 80074; 80076; 80164; 80185; 81001; 82274; 82306; 82542; 83036; 84443; 85025; 86592; 86703

== ENCOUNTER 2024-07-29 18:59 | Emergency (ER) | payer MEDICAID ==
[~2024-07-29] VITALS: Ht 165.1 cm; Wt 73.0 kg
--- NOTE | 2024-07-29 19:14 | ED.PDOC ---
Altered Mental Status HPI Comments 64-year-old female with PMHx Dementia presents with a chief complaint of ALOC and generalized weakness. Per EMS, patient is well known to them and sister of patient calls 911 whenever patient and her get into an argument to get patient out of the house. Patient had an argument tonight with her sister and sister c alled 911. Patient has no stated complaints at this time, and reports that she does not want to be here in the hospital. Patient is requesting to leave. Patient has had repeated falls per EMS, denies any head trauma. Time Seen by MD: 19:08 Primary Care Provider: unknown Reviewed Notes: Medications, Allergies Allergies: Coded Allergies: NO KNOWN ALLERGIES (Unverified , 11/23/21) Home Meds Reported Medications Clonazepam (Clonazepam) 1 Mg Tab, 1 TAB PO BID, #60 TAB 03/21/24 Divalproex Sodium (Divalproex Sodium Dr) 500 Mg Tab, 500 MG PO BID, TAB 03/21/24 Sertraline HCl (Sertraline HCl) 50 Mg Tab, 150 MG PO DAILY, TAB 03/21/24 Celecoxib (Celebrex) 100 Mg Cap, 200 MG PO DAILY for costochondritis, MG 01/04/24 Atorvastatin Calcium (ATORVASTATIN CALCIUM) 20 Mg Tab, 1 TAB PO DAILY, #30 TAB 5 Refills 01/04/24 Aspirin Buffered (Gerber Carb-Mag (Aspirin 325 mg) 1 Tab Tab, 1 TAB PO DAILY, TAB 10/09/23 Olanzapine (OLANZAPINE) 10 Mg Tab, 20 MG PO QHSP for 30 Days, MG 10/09/23 Levetiracetam (Keppra) 1,000 Mg Tab, 1000 MG PO BID, TAB 10/09/23 Donepezil Hydrochloride (DONEPEZIL HCL) 10 Mg Tab, 1 TAB PO DAILY 10/08/23 Information Source: Emergency Med Personnel Mode of Arrival: EMS Severity: Unable to Care for Self Timing: Came on: Gradually Duration: Since onset Prehospital treatment: Accucheck (158) Quality: Confusion, Memory Loss Recent: None History of: Dementia, Diabetes Past Medical History PAST MEDICAL HISTORY: Dementia, DM, HTN, Seizures Surgical History: Pacemaker 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 Family History Family History: Reviewed,noncontributory to illness Social History Smoker: Non-Smoker Alcohol: Occasionally Drugs: Marijuana Lives In: Home Constitutional: denies: chills, diaphoresis, fatigue, fever, malaise, sweats, weakness, others EENTM: denies: blurred vision, double vision, ear bleeding, ear discharge, ear drainage, ear pain, ear ringing, eye pain, eye redness, hearing loss, mouth pain, mouth swelling, nasal discharge, nose bleeding, nose congestion, nose pain, photophobia, tearing, throat pain, throat swelling, voice changes, others Respiratory: denies: cough, hemoptysis, orthopnea, SOB at rest, shortness of breath, SOB with excertion, stridor, wheezing, others Cardiovascular: denies: chest pain, dizzy spells, diaphoresis, Dyspnea on exertion, edema, irregular heart beat, left arm pain, lightheadedness, palpitations, PND, syncope, others Gastrointestinal: denies: abdomen distended, abdominal pain, blood streaked bowels, constipated, diarrhea, dysphagia, difficulty swallowing, hematemesis, me baltazar, nausea, poor appetite, poor fluid intake, rectal bleeding, rectal pain, vomiting, others Genitourinary: denies: abnormal vagina bleeding, burning, dyspareunia, dysuria, flank pain, frequency, hematuria, incontinence, pain, , vagina discharge, urgency, others Neurological: denies: dizziness, fainting, headache, left sided numbness, left sided weakness, numbness, paresthesia, pre-existing deficit, right sided numbness, right sided weakness, seizure, speech problems, tingling, tremors, weakness, others Musculoskeletal: denies: back pain, gout, joint pain, joint swelling, muscle pain, muscle stiffness, neck pain, others Integumetry: denies: bruises, change in color, change in hair/nails, dryness, laceration, lesions, lumps, rash, wounds, others Allergic/Immunocompromised: denies: Difficulty Healing, Frequent Infections, Hives, Itching, others Hematologic/Lymphatic: denies: anemia, blood clots, easy bleeding, easy bruising, swollen glands, others Endocrine: denies: excessive hunger, excessive sweating, excessive thirst, excessive urination, flushing, intolerance to cold, intolerance to heat, unexplained weight gain, unexplained weight loss, others Psychiatric: denies: anxiety, bipolar disorder, depression, hopeless, panic disorder, schizophrenia, sleepless, suicidal, others Unable to Obtain due to: Dementia All Other Systems: Reviewed and Negative Physical Exam General Appearance: No Apparent Distress, Normal HEENT: Normal ENT Inspection, Pharynx Normal, TMs Normal Neck: Full Range of Motion, Non-Tender, Normal, Normal Inspection Respiratory: Chest Non-Tender, Lungs Clear, No Accessory Muscle Use, No Respiratory Distress, Normal Breath Sounds Cardiovascular: No Edema, No JVD, No Murmur, No Gallop, Normal Peripheral Pulses, Regular Rate/Rhythm Breast Exam: Deferred Gastrointestinal: No Organomegaly, Non Tender, No Pulsatile Mass, Normal Bowel Sounds, Soft Genitalia: Deferred Pelvic: Deferred Rectal: Deferred Extremities: No calf tenderness, Normal capillary refill, Normal inspection, Normal range of motion, Non-tender, No pedal edema Musculoskeletal : Apperance: Normal Neurologic: Alert, toy mechanic II-XII nml as Tested, No Motor Deficits, Normal Affect, Normal Mood, No Sensory Deficits Cerebellar Function: Normal Reflexes: Normal Skin: Dry, Normal Color, Warm Lymphatic: No Adenopathy Was a procedure done? Was a procedure done?: No Differential Diagnosis (ALOC) Differential Diagnosis: Dehydration, Hypoglycemia, Sepsis, Seizure, Closed Head Injury, CVA, SAH, Drug Overdose, ETOH Intoxication, Other X-Ray, Labs, Meds, VS Vital Signs Date Time Temp Pulse Resp B/P (MAP) Pulse Ox O2 Delivery O2 Flow Rate FiO2 07/29/24 22:44 97.9 62 12 121/70 (87) 94 97.9 07/29/24 22:44 62 12 94 Room Air 07/29/24 19:22 98.9 76 20 163/96 (118) 94 07/29/24 19:16 64 Lab Test 07/29/24 21:49 07/29/24 19:28 Range/Units Urine Color Yellow Yellow Urine Clarity Clear Clear Urine pH 5.5 5.0-9.0 Urine Specific [place] 1.017 1.001-1.035 Urine Protein Trace H Negative Urine Ketones Trace Negative Urine Blood Negative Negative /uL Urine Nitrite Negative Negative Urine Bilirubin Negative Negative Urine Urobilinogen Normal Negative mg/dL Urine Leukocyte Esterase Negative Negative /uL Urine RBC 1 0 - 4 /hpf Urine WBC 1 0 - 5 /hpf Urine Squamous Epithelial Cells Few <5 /hpf Urine Bacteria None seen None Seen /hpf Urine Glucose Normal Normal mg/dL White Blood Count 8.0 4.4-10.8 10^3/uL Red Blood Count 4.34 4.0-5.20 10^6/uL Hemoglobin 13.5 12.2-16.2 g/dL Hematocrit 40.7 36.0-46.0 % Mean Corpuscular Volume 93.9 80.0-100.0 fL Mean Corpuscular Hemoglobin 31.1 28.0-32.0 pg Mean Corpuscular Hemoglobin Concent 33.1 32.0-36.0 g/dL Red Cell Distribution Width 15.4 H 11.8-14.3 % Platelet Count 274 140-450 10^3/uL Mean Platelet Volume 8.0 6.9-10.8 fL Neutrophils (%) (Auto) 62.4 37.0-80.0 % Lymphocytes (%) (Auto) 18.2 10.0-50.0 % Monocytes (%) (Auto) 17.9 H 0.0-12.0 % Eosinophils (%) (Auto) 0.5 0.0-7.0 % Basophils (%) (Auto) 1.0 0.0-2.0 % Neutrophils # (Auto) 5.0 1.6-8.6 10 ^3/uL Lymphocytes # (Auto) 1.5 0.4-5.4 10 ^3/uL Monocytes # (Auto) 1.4 H 0-1.3 10 ^3/uL Eosinophils # (Auto) 0 0-0.8 10 ^3/uL Basophils # (Auto) 0.1 0-0.2 10 ^3/uL Nucleated Red Blood Cells 0.1 % Sodium Level 139 136-145 mmol/L Potassium Level 3.1 L 3.5-5.1 mmol/L Chloride Level 107 98-107 mmol/L Carbon Dioxide Level 21 20-31 mmol/L Anion Gap 11 5-15 Blood Urea Nitrogen 11 9-23 mg/dL Creatinine 0.92 0.550-1.02 mg/dL Glomerular Filtration Rate Calc 70 >90 mL/min BUN/Creatinine Ratio 12.0 10.0-20.0 Serum Glucose 162 H 74-106 mg/dL Calcium Level 9.1 8.7-10.4 mg/dL Magnesium Level 2.1 1.6-2.6 mg/dL Total Bilirubin 0.3 0.2-1.0 mg/dL Aspartate Amino Transferase (AST) 27 13-40 U/L Alanine Aminotransferase (ALT) 22 7-40 U/L Alkaline Phosphatase 161 H 46-116 U/L Total Protein 7.0 5.7-8.2 g/dL Albumin 4.3 3.2-4.8 g/dL Current Medications Medications (Trade) Dose Ordered Sig/Odin Route Start Time Stop Time Status Last Admin Potassium Chloride (Klor-Con Tablet) 20 meq ONCE ONCE PO 07/29/24 20:15 07/29/24 20:16 DC 07/29/24 22:25 Time of 1ST Reevaluation: 19:38 Reevaluation 1ST: Unchanged Time of 2ND Reevaluation: 00:10 Reevaluation 2ND: Unchanged Patient Education/Counseling: Diagnosis, Treatment, Prognosis Family Education/Counseling: No Family Present Departure 1 Departure Time of Disposition: 23:30 Impression: Primary Impression: Dementia Disposition: 01 HOME / SELF CARE / HOMELESS Condition: Stable Discharged With: Self, Relative Critical Care Note Critical Care Time?: No Stability Stability form required: No I personally scribed for THERESA WINTER MD ([email or web address]) on 07/29/24 at 19:14. Electronically submitted by Isra Shields [email or web address]). THERESA WINTER MD Jul 29, 2024 19:14
[2024-07-29 19:38] LABS: Basophils # (auto) 0.1 10 ^3/uL (0-0.2); Eosinophils # (auto) 0 10 ^3/uL (0-0.8); Eosinophils % (auto) 0.5 % (0.0-7.0); Hematocrit 40.7 % (36.0-46.0); Hemoglobin 13.5 g/dL (12.2-16.2); Lymphocytes # (auto) 1.5 10 ^3/uL (0.4-5.4); Lymphocytes % (auto) 18.2 % (10.0-50.0); Mean Corpuscular Hemoglobin 31.1 pg (28.0-32.0); Mean Corpuscular Hgb Conc. 33.1 g/dL (32.0-36.0); Mean Corpuscular Volume 93.9 fL (80.0-100.0); Monocytes # (auto) 1.4 10 ^3/uL (0-1.3); Monocytes % (auto) 17.9 % (0.0-12.0); Neutrophils % (auto) 62.4 % (37.0-80.0); Nucleated Red Blood Cells % 0.1 %; Platelet Count (auto) 274 10^3/uL (140-450); Red Blood Cells 4.34 10^6/uL (4.0-5.20); Red Cell Distribution Width 15.4 % (11.8-14.3)
[2024-07-29 19:58] LABS: Alanine Aminotransferase 22 U/L (7-40); Albumin 4.3 g/dL (3.2-4.8); Anion Gap 11 (5-15); Aspartate Aminotransferase 27 U/L (13-40); Blood Urea Nitrogen 11 mg/dL (9-23); Calcium 9.1 mg/dL (8.7-10.4); Carbon Dioxide 21 mmol/L (20-31); Chloride 107 mmol/L (98-107); Magnesium 2.1 mg/dL (1.6-2.6); Sodium 139 mmol/L (136-145)
[2024-07-29 19:59] LABS: Alkaline Phosphatase 161 U/L (46-116); Bilirubin, Total 0.3 mg/dL (0.2-1.0); Glucose 162 mg/dL (74-106); Potassium 3.1 mmol/L (3.5-5.1)
[2024-07-29 21:50] LABS: Urine Bacteria None Seen /hpf (None Seen)
[2024-07-29 22:00] LABS: Urine Blood Negative /uL (Negative); Urine Clarity Clear (Clear); Urine Color Yellow (Yellow); Urine Protein, UAD TRACE (Negative); Urine Specific Gravity 1.017 (1.001-1.035); Urine Squamous Epithelial Cell FEW /hpf (<5); Urine Urobilinogen Normal (Negative); Urine WBC 1 /hpf (0 - 5); Urine pH 5.5 (5.0-9.0)
[2024-07-29] MEDS: POTASSIUM CHL 20 Meq TABLET PO ONE (22:25)
[2024-07-29 22:44] VITALS: BP 121/70; PULSE 62; RESP 12; TEMP 97.9; O2SAT 94
--- NOTE | 2024-07-31 17:10 | ECG ---
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
== END 2024-07-29 22:47 | disposition home or self-care (01) ==
LOC: EDBD 18:59 → ER 18:59
DX: F03.90 Unspecified dementia, unspecified severity, without behavioral disturbance, psychotic disturbance, mood disturbance, and anxiety (principal); E11.9 Type 2 diabetes mellitus without complications; I10 Essential (primary) hypertension; F12.90 Cannabis use, unspecified, uncomplicated; Z79.1 Long term (current) use of non-steroidal anti-inflammatories (NSAID); Z79.899 Other long term (current) drug therapy; Z95.0 Presence of cardiac pacemaker
CPT/HCPCS: 36415; 80053; 81001; 83735; 85025; 93005

== ENCOUNTER 2024-07-30 02:57 | Emergency (ER) | payer MEDICAID ==
[~2024-07-30] VITALS: Ht 165.1 cm; Wt 65.3 kg
[2024-07-30 03:05] VITALS: BP 144/102; PULSE 99; RESP 17; O2SAT 96
--- NOTE | 2024-07-30 03:29 | ED.PDOC ---
History of Present Illness HPI Comments 64-year-old female presents with a chief complaint of fall. Patient states that she was seen here last night, while waiting for a ride home after discharge, patient states that she fell multiple times in the lobby and outside. Patient states that she fell and hit her face, breaking her upper set of dentures in half. Patient has small abrasion to her bottom lip. Patient denies LOC, and denies N/V/D. Chief Complaint: Fall Injury Time Seen by MD: 03:06 Primary Care Provider: unknown Reviewed Notes: Medications, Allergies Allergies: Coded Allergies: NO KNOWN ALLERGIES (Unverified , 11/23/21) Home Meds Reported Medications Clonazepam (Clonazepam) 1 Mg Tab, 1 TAB PO BID, #60 TAB 03/21/24 Divalproex Sodium (Divalproex Sodium Dr) 500 Mg Tab, 500 MG PO BID, TAB 03/21/24 Sertraline HCl (Sertraline HCl) 50 Mg Tab, 150 MG PO DAILY, TAB 03/21/24 Celecoxib (Celebrex) 100 Mg Cap, 200 MG PO DAILY for costochondritis, MG 01/04/24 Atorvastatin Calcium (ATORVASTATIN CALCIUM) 20 Mg Tab, 1 TAB PO DAILY, #30 TAB 5 Refills 01/04/24 Aspirin Buffered (Gerber Carb-Mag (Aspirin 325 mg) 1 Tab Tab, 1 TAB PO DAILY, TAB 10/09/23 Olanzapine (OLANZAPINE) 10 Mg Tab, 20 MG PO QHSP for 30 Days, MG 10/09/23 Levetiracetam (Keppra) 1,000 Mg Tab, 1000 MG PO BID, TAB 10/09/23 Donepezil Hydrochloride (DONEPEZIL HCL) 10 Mg Tab, 1 TAB PO DAILY 10/08/23 Information Source: Patient Mode of Arrival: Ambulatory Severity: Moderate Timing: Hours Duration: Since onset Prehospital treatment: None Past Medical History PAST MEDICAL HISTORY: Dementia, DM, HTN, Seizures Surgical History: Pacemaker 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 Family History Family History: Reviewed,noncontributory to illness Social History Smoker: Non-Smoker Alcohol: Occasionally Drugs: Marijuana Lives In: Home Constitutional: denies: chills, diaphoresis, fatigue, fever, malaise, sweats, weakness, others EENTM: denies: blurred vision, double vision, ear bleeding, ear discharge, ear drainage, ear pain, ear ringing, eye pain, eye redness, hearing loss, mouth pain, mouth swelling, nasal discharge, nose bleeding, nose congestion, nose pain, photophobia, tearing, throat pain, throat swelling, voice changes, others Respiratory: denies: cough, hemoptysis, orthopnea, SOB at rest, shortness of breath, SOB with excertion, stridor, wheezing, others Cardiovascular: denies: chest pain, dizzy spells, diaphoresis, Dyspnea on exertion, edema, irregular heart beat, left arm pain, lightheadedness, palpitations, PND, syncope, others Gastrointestinal: denies: abdomen distended, abdominal pain, blood streaked bowels, constipated, diarrhea, dysphagia, difficulty swallowing, hematemesis, melena, nausea, poor appetite, poor fluid intake, rectal bleeding, rectal pain, vomiting, others Genitourinary: denies: abnormal vagina bleeding, burning, dyspareunia, dysuria, flank pain, frequency, hematuria, incontinence, pain, , vagina discharge, urgency, others Neurological: denies: dizziness, fainting, headache, left sided numbness, left sided weakness, numbness, paresthesia, pre-existing deficit, right sided numbness, right sided weakness, seizure, speech problems, tingling, tremors, weakness, others Musculoskeletal: reports: muscle pain; denies: back pain, gout, joint pain, joint swelling, muscle stiffness, neck pain, others Integumetry: reports: others (ABRASION); denies: bruises, change in color, change in hair/nails, dryness, laceration, lesions, lumps, rash, wounds Allergic/Immunocompromised: denies: Difficulty Healing, Frequent Infections, Hives, Itching, others Hematologic/Lymphatic: denies: anemia, blood clots, easy bleeding, easy bruising, swollen glands, others Endocrine: denies: excessive hunger, excessive sweating, excessive thirst, excessive urination, flushing, intolerance to cold, intolerance to heat, unexplained weight gain, unexplained weight loss, others Psychiatric: denies: anxiety, bipolar disorder, depression, hopeless, panic disorder, schizophrenia, sleepless, suicidal, others All Other Systems: Reviewed and Negative Physical Exam General Appearance: No Apparent Distress, Normal HEENT: Normal ENT Inspection, Pharynx Normal, TMs Normal Neck: Full Range of Motion, Non-Tender, Normal, Normal Inspection Respiratory: Chest Non-Tender, Lungs Clear, No Accessory Muscle Use, No Respiratory Distress, Normal Breath Sounds Cardiovascular: No Edema, No JVD, No Murmur, No Gallop, Normal Peripheral Pulses, Regular Rate/Rhythm Breast Exam: Deferred Gastrointestinal: No Organomegaly, Non Tender, No Pulsatile Mass, Normal Bowel Sounds, Soft Genitalia: Deferred Pelvic: Deferred Rectal: Deferred Extremities: No calf tenderness, Normal capillary refill, Normal inspection, Normal range of motion, Non-tender, No pedal edema Musculoskeletal : Apperance: Normal Neurologic: Alert, head gauge unit operator II-XII nml as Tested, No Motor Deficits, Normal Affect, Normal Mood, No Sensory Deficits Cerebellar Function: Normal Reflexes: Normal Skin: Dry, Normal Color, Warm Lymphatic: No Adenopathy Was a procedure done? Was a procedure done?: No Differential Dx Considerations may include: Differential diagnosis includes but not limited to: Bony fracture, dislocation, compartment syndrome, nerve injury, vascular injury and others X-Ray, Labs, Meds, VS Vital Signs Date Time Temp Pulse Resp B/P (MAP) Pulse Ox O2 Delivery O2 Flow Rate FiO2 07/30/24 03:05 97.5 99 17 144/102 (116) 96 Lab Test 07/30/24 03:10 Range/Units POC Glucose 157 H 70-106 mg/dl Time of 1ST Reevaluation: 03:39 Reevaluation 1ST: Unchanged Patient Education/Counseling: Diagnosis, Treatment, Prognosis Family Education/Counseling: No Family Present Departure 1 Departure Time of Disposition: 05:00 Impression: Primary Impression: Dementia Additional Impression: Multiple falls Disposition: 01 HOME / SELF CARE / HOMELESS Condition: Stable Discharged With: Self, Relative Critical Care Note Critical Care Time?: No Stability Stability form required: No I personally scribed for THERESA WINTER MD ([email or web address]) on 07/30/24 at 03:29. Electronically submitted by Isra Shields [email or web address]). THERESA WINTER MD Jul 30, 2024 03:29
== END 2024-07-30 07:17 | disposition home or self-care (01) ==
LOC: ER 02:57
DX: F03.90 Unspecified dementia, unspecified severity, without behavioral disturbance, psychotic disturbance, mood disturbance, and anxiety (principal); E11.9 Type 2 diabetes mellitus without complications; I10 Essential (primary) hypertension; F12.90 Cannabis use, unspecified, uncomplicated; Z79.1 Long term (current) use of non-steroidal anti-inflammatories (NSAID); Z79.899 Other long term (current) drug therapy; Z95.0 Presence of cardiac pacemaker
CPT/HCPCS: 82962